=== PATIENT | female | born 1950 | race Asian ===

== ENCOUNTER 2021-07-06 03:34 | Emergency (ER) | payer OTHER ==
[2021-07-06 03:43] VITALS: BP 153/88; PULSE 76; TEMP 97.8; BMI 21.9
[2021-07-06] MEDS ORDERED: morphine SULFATE IMMEDIATE RELEASE 30 MG TAB PO PRN (04:14)
[2021-07-06] MEDS ORDERED: metroNIDAZOLE 250 MG TABLET PO ONE (04:14)
[2021-07-06] MEDS ORDERED: metroNIDAZOLE 250 MG TABLET ONE (04:20)
[2021-07-06] MEDS ORDERED: morphine SULFATE IMMEDIATE RELEASE 30 MG TAB ONE (04:26)
[2021-07-06] MEDS ORDERED: CLINDAMYCIN HCL 300 MG CAPSULE PO ONE (04:44)
[2021-07-06] MEDS ORDERED: CLINDAMYCIN HCL 150 MG CAPSULE (FP) ONE (04:48)
[2021-07-06] MEDS ORDERED: BUPIVACAINE 0.25% /EPI 1:200,000 10 ML VIAL INF ONE (05:26)
[2021-07-06] MEDS ORDERED: BUPIVACAINE HCL/PF 0.5% (5MG/ML) 10 ML VIAL ONE (05:27)
== END 2021-07-06 05:54 | disposition home or self-care (01) ==
LOC: JER 03:34
DX: K08.89 Other specified disorders of teeth and supporting structures (principal)
CPT/HCPCS: 70100-TC-FY; 99283-25

== ENCOUNTER 2024-06-12 17:10 | Emergency (ER) | payer OTHER ==
[2024-06-12 17:20] VITALS: BP 138/77; PULSE 83; RESP 16; TEMP 98.6; BMI 23.4
== END 2024-06-12 18:26 | disposition home or self-care (01) ==
LOC: JER 17:10
DX: R20.0 Anesthesia of skin (principal); R20.2 Paresthesia of skin
CPT/HCPCS: 99283-25